=== PATIENT | female | born 1960 | race Caucasian/White ===

== ENCOUNTER 2017-12-23 10:34 | Emergency (ER) | payer MEDICAID ==
[~2017-12-23] VITALS: Ht 160 cm; Wt 89.0 kg
[2017-12-23] MEDS ORDERED: IBUPROFEN 600MG TABLET PO ONE (14:45)
[2017-12-23] MEDS ORDERED: HYDROCODONE/ACETAMINOPHEN 5/325MG TABLET PO ONE (16:15)
[2017-12-23] MEDS ORDERED: TRAMADOL 50MG TABLET PO ONE (20:45)
[2017-12-23 20:50] VITALS: BP 140/65
== END 2017-12-23 20:51 | disposition home or self-care (01) ==
LOC: ER 10:34
DX: M54.31 Sciatica, right side (principal); I10 Essential (primary) hypertension; E11.9 Type 2 diabetes mellitus without complications
CPT/HCPCS: 73562; 99284